=== PATIENT | female | born 1995 | race Two or more races ===

== ENCOUNTER → 2019-12-10 | Outpatient (CLI) | payer OTHER | END | disposition home or self-care (01) | LOC: RX STUDY 08:39 | DX: N85.6 Intrauterine synechiae (principal) ==

== ENCOUNTER 2019-12-16 13:58 | Outpatient (CLI) | payer OTHER | END 2019-12-16 14:00 | disposition home or self-care (01) | LOC: SONOGRAMA 13:58 | DX: N85.01 Benign endometrial hyperplasia (principal) ==

== ENCOUNTER 2021-12-16 07:57 | Outpatient (CLI) | payer OTHER | END 2021-12-16 09:11 | disposition home or self-care (01) | LOC: PRENATAL 07:57 | PROVIDERS: ATTEND Obstetrics & Gynecology Maternal & Fetal Medicine | DX: O35.0XX0 Maternal care for (suspected) central nervous system malformation in fetus, not applicable or unspecified (principal); O35.3XX0 Maternal care for (suspected) damage to fetus from viral disease in mother, not applicable or unspecified; O10.019 Pre-existing essential hypertension complicating pregnancy, unspecified trimester; O34.219 Maternal care for unspecified type scar from previous cesarean delivery ==

== ENCOUNTER 2022-01-23 13:56 | Outpatient (CLI) | payer OTHER | END 2022-01-23 14:35 | disposition home or self-care (01) | LOC: PRENATAL 13:56 | PROVIDERS: ATTEND Obstetrics & Gynecology Maternal & Fetal Medicine | DX: O26.849 Uterine size-date discrepancy, unspecified trimester (principal); O13.9 Gestational [pregnancy-induced] hypertension without significant proteinuria, unspecified trimester; O34.219 Maternal care for unspecified type scar from previous cesarean delivery; O44.00 Complete placenta previa NOS or without hemorrhage, unspecified trimester; O10.019 Pre-existing essential hypertension complicating pregnancy, unspecified trimester ==

== ENCOUNTER 2022-03-02 13:52 | Outpatient (CLI) | payer OTHER | END 2022-03-02 14:25 | disposition home or self-care (01) | LOC: PRENATAL 13:52 | PROVIDERS: ATTEND Obstetrics & Gynecology Maternal & Fetal Medicine | DX: O26.849 Uterine size-date discrepancy, unspecified trimester (principal); O10.019 Pre-existing essential hypertension complicating pregnancy, unspecified trimester; O34.219 Maternal care for unspecified type scar from previous cesarean delivery; O60.00 Preterm labor without delivery, unspecified trimester; Z3A.35 35 weeks gestation of pregnancy ==